=== PATIENT | female | born 1935 | race Two or more races ===

== ENCOUNTER 2018-08-12 14:15 | Outpatient (CLI) | payer MEDICARE, OTHER ==
[~2018-08-12 14:15] MED LIST: ASPIRIN EC81 MG ORAL; CALCIUM500 M3 PO; CHOLESTEROL MED PO; PROZAC10 MG ORAL; SIMVASTATIN40 MG ORAL; [UNRECOGNIZED DRUG - REMARK] IM
[2018-08-12 15:23] VITALS: BP 123/60
--- NOTE | 2018-08-12 16:22 | GI Progress Note ---
Assessment/Plan Problems: (1) H. pylori infection ICD Codes: A04.8 - Other specified bacterial intestinal infections SNOMED: 986676456 Status: stable Status Narrative Discussed with Dr. Peraza. Assessment/Plan s/p EGD / colonoscopy 2015, noted with H. Pylori infection never had treatment Breath Test today RTC pending results, will contact patient repeat colonoscopy 2020 The patient was seen and examined at bedside and all new and available data was reviewed in the patients chart. I agree with the above findings, impression and plan. (Patient seen earlier today. Signature stamp does not reflect patient encounter time.). - Max Peraza MD Subjective Gastrointestinal/Abdominal: Reports: no symptoms Objective Last 24 Hour Vital Signs Date Time Temp Pulse Resp B/P (MAP) Pulse Ox O2 Delivery O2 Flow Rate FiO2 08/12/18 15:23 97.7 83 123/60 96 Laboratory Tests Test 08/12/18 14:45 Helicobacter pylori Breath Test Pending General Appearance: WD/WN, no apparent distress, alert Cardiovascular: normal rate Respiratory/Chest: normal breath sounds, no respiratory distress Abdominal Exam: normal bowel sounds, non tender, soft Extremities: normal range of motion, non-tender Camille Jimenez SUPERVISOR [employer]INE Aug 12, 2018 16:22
== END 2018-08-12 14:45 | disposition home or self-care (01) ==
LOC: PAN 14:15
DX: A04.8 Other specified bacterial intestinal infections (principal)
CPT/HCPCS: 83013; G0463; 99212

== ENCOUNTER 2019-05-26 13:53 | Outpatient (CLI) | payer MEDICARE, OTHER ==
[2019-05-26] MEDS ORDERED: LOSARTAN POTASS50 MG ORAL (14:46)
--- NOTE | 2019-05-26 14:50 | GI Progress Note ---
Assessment/Plan Problems: (1) Hx of colonic polyps ICD Codes: Z86.010 - Personal history of colonic polyps SNOMED: 825413705 (2) Elevated cholesterol ICD Codes: E78.0 - Pure hypercholesterolemia SNOMED: 18944812 (3) Colonoscopy planned ICD Codes: [id number] - Reserved for [id number] codable problem concepts SNOMED: 601949661 (4) H. pylori infection ICD Codes: A04.8 - Other specified bacterial intestinal infections SNOMED: 247588661 Status: unchanged Status Narrative Discussed with Dr. Peraza. Assessment/Plan FHx of colon CA. Hx of H. Pylori s/p treatment EGD/colonoscopy to be scheduled 06/06/19. - CLD & (Nulytely/Suprep/Movi-Prep) prep instructions given and acknowledged by patient. - NPO @ [place] day prior procedure explained. - Hold ASA day prior procedure. Will follow with additional recs post procedure. labs to drawn day of procedure, anemia panel. The patient was seen and examined at bedside and all new and available data was reviewed in the patients chart. I agree with the above findings, impression and plan. (Patient seen earlier today. Signature stamp does not reflect patient encounter time.). - Max Peraza MD Subjective Subjective generalized weakness abdominal discomfort Objective General Appearance: WD/WN, no apparent distress, alert Cardiovascular: normal rate Respiratory/Chest: normal breath sounds, no respiratory distress Abdominal Exam: normal bowel sounds, non tender, soft Extremities: normal range of motion, non-tender Camille Jimenez CHILD CARE GROUP LEADER May 26, 2019 14:50
== END 2019-05-26 15:53 | disposition home or self-care (01) ==
LOC: PAN 13:53
DX: E78.00 Pure hypercholesterolemia, unspecified (principal); Z86.010 Personal history of colon polyps; A04.8 Other specified bacterial intestinal infections; R53.1 Weakness; R10.9 Unspecified abdominal pain
CPT/HCPCS: 99212

== ENCOUNTER 2019-06-06 07:30 | Day surgery (SDC) | payer MEDICARE, OTHER ==
[2019-06-06] VITALS (8 sets, daily range): BP systolic 99–122; BP diastolic 50–66
[~2019-06-06] VITALS: Ht 157.5 cm; Wt 71.7 kg
[~2019-06-06 07:30] MED LIST changes: +LOSARTAN POTASS50 MG ORAL
[2019-06-06] MEDS ORDERED: fentaNYL 100 mcg/2 mL IV ONE ×2 (07:31→09:00)
--- NOTE | 2019-06-06 08:38 | Anethesia Preoperative Eval ---
Anesthesia Pre-op PMH/ROS General Date of Evaluation: Jun 06, 2019 Time of Evaluation: 08:35 Anesthesiologist: Alex ASA Score: ASA 2 Mallampati Score Class I : Soft palate, uvula, fauces, pillars visible Class II: Soft palate, uvula, fauces visible Class III: Soft palate, base of uvula visible Class IV: Only hard plate visible Mallampati Classification: Class II Surgeon: Karmen Diagnosis: Abdominal pain Surgical Procedure: EGD Colonoscopy Anesthesia History: none Family History: no anesthesia problems Allergies: Coded Allergies: No Known Allergies (Unverified , 06/01/16) Medications: see eMAR Patient NPO?: Yes Past Medical History Cardiovascular: Reports: HTN; Denies: CAD, NH, valve dz, arrhythmia, other Pulmonary: Denies: asthma, COPD, FAUSTINO, other Gastrointestinal/Genitourinary: Reports: GERD; Denies: CRI, ESRD, other Neurologic/Psychiatric: Reports: depression/anxiety; Denies: dementia, CVA, TIA, other Endocrine: Reports: hypothyroidism; Denies: DM, steroids, other HEENT: Denies: cataract (L), cataract (R), glaucoma, CADDO (L), CADDO (R), other Hematology/Immune: Denies: anemia, DVT, bleeding disorder, other Musculoskeletal/Integumentary: Reports: OA; Denies: RA, DJD, DDD, edema, other PMH Narrative: as above PSxH Narrative: See H&P Anesthesia Pre-op Phys. Exam Physician Exam Last Vital Signs Date Time Temp Pulse Resp B/P (MAP) Pulse Ox O2 Delivery O2 Flow Rate FiO2 06/06/19 08:23 97.7 78 16 96 Room Air Constitutional: NAD Neurologic: CN 2-12 intact Cardiovascular: RRR, no M/R/G Respiratory: CTA Gastrointestinal: S/NT/ND Airway Exam Mallampati Score: Class II MO: limited Neck: stiff ROM: limited Teeth: missing Dentures: no upper, no lower Anesthesia Pre-op A/P Risk Assessment & Plan Assessment: ASA 2 Plan: MAC Status Change Before Surgery: No Amaury Johnson MD Jun 06, 2019 08:37
[2019-06-06] MEDS ORDERED: LEXAPRO10 MG ORAL (08:39)
--- NOTE | 2019-06-06 08:51 | Pre-Procedure Note/Attestation ---
Pre-Procedure Note/Attestation Complete Prior to Procedure Planned Procedure: not applicable Procedure Narrative: esophagogastroduodenoscopy and colonoscopy Indications for Procedure Pre-Operative Diagnosis: screening colon, GERD Attestation I attest that I discussed the nature of the procedure; its benefits; risks and complications; and alternatives (and the risks and benefits of such alternatives ), prior to the procedure, with the patient (or the patient's legal utility sales representative). I attest that, if there was a reasonable possibility of needing a blood transfusion, the patient (or the patient's legal utility sales representative) was given the [facility] standardized written summary, pursuant to the Alireza [place] Blood Safety Act ([place] Health and Safety Code # 1645, as amended). I attest that I re-evaluated the patient just prior to the surgery and that there has been no change in the patient's H&P, except as documented below: Max Peraza MD Jun 06, 2019 08:51
--- NOTE | 2019-06-06 08:51 | Short Stay Surgery H&P ---
History of Present Illness History of Present Illness Chief Complaint see recent office note HPI Jose L Contreras is a 83 year old female who was admitted on for Abdominal Pain, Gerd Patient History Allergies: Coded Allergies: No Known Allergies (Unverified , 06/01/16) Medication History Scheduled Aspirin Ec* (Aspirin Ec*), 81 MG ORAL DAILY, (Reported) Calcium Carbonate (Calcium), 500 MG PO DAILY, (Reported) Escitalopram Oxalate* (Lexapro*), 10 MG ORAL DAILY, (Reported) Losartan Potassium* (Losartan Potassium*), ORAL DAILY, (Reported) Simvastatin (Zocor), 40 MG ORAL DAILY, (Reported) [Injection (Bones)], Unknown Dose IM EVERY 6 MONTHS, (Reported) Physical Exam Vital Signs Last Vital Signs Date Time Temp Pulse Resp B/P (MAP) Pulse Ox O2 Delivery O2 Flow Rate FiO2 06/06/19 08:43 Room Air 06/06/19 08:23 97.7 78 16 96 Plan Attestation Are the patient's medical conditions optimized for surgery? Max Peraza MD Jun 06, 2019 08:51
[2019-06-06] MEDS ORDERED: Propofol 200mg/20ml IV ONE (09:00)
[2019-06-06] MEDS ORDERED: LR 1000ml ONE (09:00)
[2019-06-06] MEDS ORDERED: LR 1000ml 1,000 ML IVLG SCH (09:22)
--- NOTE | 2019-06-06 09:33 | Endoscopy Procedure Note ---
Endoscopy Procedure Note General Indication for Procedure: screning colon eval, GERD Procedures Performed: EGD, colonoscopy Operative Findings/Diagnosis: gastritis, hemorrhoids Specimen: yes Pt Tolerated Procedure Well: Yes Estimated Blood Loss: none Anesthesia Anesthesiologist: liyah Anesthesia: MAC Inserted Devices Implant(s) used?: No Quality Quality of Bowel Preparation: Good Did scope reach the cecum?: Yes Was there any complications?: No GI Core Measures 50 yrs or older w/o bx or poly: No 10yrs. F/U recommended: Yes 18 years or older w/prev. colo: No Max Peraza MD Jun 06, 2019 09:33
--- NOTE | 2019-06-06 09:38 | Immediate Post-Op Evaluation ---
Immediate Post-Op Evalulation Immediate Post-Op Evalulation Procedure: EGD Colonoscopy Date of Evaluation: Jun 06, 2019 Time of Evaluation: 09:37 IV Fluids: 500 Blood Products: none Estimated Blood Loss: none Urinary Output: none Blood Pressure Systolic: 128 Blood Pressure Diastolic: 76 Pulse Rate: 68 Respiratory Rate: 20 O2 Sat by Pulse Oximetry: 98 Temperature (Fahrenheit): 97.4 Pain Score (1-10): 1 Nausea: No Vomiting: No Complications none Patient Status: awake, patent, none Hydration Status: adequate Amaury Johnson MD Jun 06, 2019 09:38
--- NOTE | 2019-06-06 11:15 | Procedure Note ---
DATE OF PROCEDURE: 06/06/2019 SURGEON: Max Peraza M.D. PROCEDURE: Upper endoscopy with biopsy and colonoscopy with biopsy . ANESTHESIA: Per Dr. Johnson. INSTRUMENT: Olympus adult flexible upper endoscope and colonoscope. INDICATION: Screening colonoscopy and chronic GERD. REASON FOR PROCEDURE: The procedure, risks, benefits, and possible consequences, including hemorrhage, aspiration, perforation and infection, and alternative treatments, were explained to the patient/legal guardian by Dr. Max Peraza and the patient/legal guardian understood and accepted these risks. PROCEDURE IN DETAIL: After informed consent was obtained and the patient was adequately sedated, Olympus upper endoscope was advanced from mouth into the second portion of the duodenum and retroflexion was performed in the stomach. The patient had evidence of gastritis. Random biopsy from antrum and body was obtained to rule out H. pylori infection. Rest of upper endoscopic examination was grossly looked within normal limits. GE junction was found to be about 36 cm from the incisors. At this time, the upper endoscope was retrieved and the patient was turned over for colonoscopy First, rectal exam was performed which was positive for small internal hemorrhoids. Then, the scope was advanced from rectum into the cecum documented by appendiceal orifice, ileocecal valve, and right upper quadrant palpation. Quality of prep was very good. The patient had two polyps in the ascending colon, both less than a cm. One actually was another one was 6, both removed with the cold biopsy forceps technique. The rest of the examination grossly looked within normal limit. Retroflexion of rectum showed evidence of small nonbleeding internal hemorrhoids. SUMMARY OF FINDINGS: 1. Gastritis, status post biopsy. 2. Internal hemorrhoids. 3. Two colonic polyp removed, see above for details. RECOMMENDATIONS: Follow up pathology and treat accordingly. I want to thank, Dr. Vela for this kind referral. Max Peraza M.D. DR: Nga JOB#: [id number] CC: Max Vela M.D.; Fax#: [phone]
--- NOTE | 2019-06-06 13:04 | 48 Hour Post Anesthesia Eval ---
Post Anesthesia Evaluation Procedure: EGD Colonoscopy Date of Evaluation: Jun 06, 2019 Time of Evaluation: 13:03 Blood Pressure Systolic: 122 0: 56 Pulse Rate: 74 Respiratory Rate: 20 Temperature (Fahrenheit): 97.2 O2 Sat by Pulse Oximetry: 98 Airway: patent Nausea: No Vomiting: No Pain Intensity: 1 Hydration Status: adequate Cardiopulmonary Status: stable Mental Status/LOC: patient returned to baseline Follow-up Care/Observations: n/a Post-Anesthesia Complications: none Follow-up care needed: ready to discharge Amaury Johnson MD Jun 06, 2019 13:04
--- NOTE | 2019-06-08 13:02 | Cardiology Report ---
APPROVED REPORT EKG Measurement Heart [id number] Normal sinus rhythm Normal ECG
== END 2019-06-06 11:50 | disposition home or self-care (01) ==
LOC: GAS 07:30
DX: Z12.11 Encounter for screening for malignant neoplasm of colon (principal); K21.9 Gastro-esophageal reflux disease without esophagitis; K64.8 Other hemorrhoids; K63.5 Polyp of colon; I10 Essential (primary) hypertension; F32.9 Major depressive disorder, single episode, unspecified; F41.9 Anxiety disorder, unspecified; M19.90 Unspecified osteoarthritis, unspecified site; K29.50 Unspecified chronic gastritis without bleeding; B96.81 Helicobacter pylori [H. pylori] as the cause of diseases classified elsewhere; D12.2 Benign neoplasm of ascending colon
CPT/HCPCS: 43239; 45380; 93005; J2704; J3010; 94003; 94150

== ENCOUNTER 2019-07-01 09:53 | Outpatient (CLI) | payer MEDICARE, OTHER ==
[~2019-07-01 09:53] MED LIST changes: +LEXAPRO10 MG ORAL
[2019-07-01 10:06] VITALS: BP 107/86
--- NOTE | 2019-07-01 11:15 | General Progress Note ---
Assessment/Plan Problem List: (1) H. pylori infection ICD Codes: A04.8 - Other specified bacterial intestinal infections SNOMED: 253943774 (2) Elevated cholesterol ICD Codes: E78.0 - Pure hypercholesterolemia SNOMED: 72192477 (3) Hx of colonic polyps ICD Codes: Z86.010 - Personal history of colonic polyps SNOMED: 665618852 Assessment/Plan: SUMMARY OF FINDINGS: 1. Gastritis, status post biopsy. 2. Internal hemorrhoids. 3. Two colonic polyp removed, see above for details. EGD and colonoscopy reviewed treat for HP RTC 3 months Subjective ROS Limited/Unobtainable: Yes Allergies: Coded Allergies: No Known Allergies (Unverified , 06/01/16) Objective General Appearance: alert EENT: normal ENT inspection Neck: supple Cardiovascular: normal rate Respiratory/Chest: decreased breath sounds Abdomen: normal bowel sounds, non tender, soft Extremities: non-tender Max Peraza MD Jul 01, 2019 11:15
== END 2019-07-01 12:30 | disposition home or self-care (01) ==
LOC: PAN 09:53
DX: E78.00 Pure hypercholesterolemia, unspecified (principal); A04.8 Other specified bacterial intestinal infections; Z86.010 Personal history of colon polyps; K29.70 Gastritis, unspecified, without bleeding; K64.8 Other hemorrhoids

== ENCOUNTER 2019-09-30 08:37 | Outpatient (CLI) | payer MEDICARE, OTHER ==
--- NOTE | 2019-09-30 10:02 | General Progress Note ---
Assessment/Plan Assessment/Plan: Assessment/Plan Problem List: (1) H. pylori infection ICD Codes: A04.8 - Other specified bacterial intestinal infections SNOMED: 258600831 (2) Elevated cholesterol ICD Codes: E78.0 - Pure hypercholesterolemia SNOMED: 56517574 (3) Hx of colonic polyps ICD Codes: Z86.010 - Personal history of colonic polyps SNOMED: 453229609 Assessment/Plan: SUMMARY OF FINDINGS: 1. Gastritis, status post biopsy. 2. Internal hemorrhoids. 3. Two colonic polyp removed, see above for details. EGD and colonoscopy reviewed breath test today RTC 3 months Subjective ROS Limited/Unobtainable: Yes Allergies: Coded Allergies: No Known Allergies (Unverified , 06/01/16) Objective General Appearance: alert EENT: normal ENT inspection Neck: supple Cardiovascular: normal rate Respiratory/Chest: decreased breath sounds Abdomen: normal bowel sounds, non tender, soft Extremities: non-tender Max Peraza MD Sep 30, 2019 10:02
[2019-09-30 15:23] VITALS: BP 110/70
== END 2019-09-30 10:37 | disposition home or self-care (01) ==
LOC: PAN 08:37
DX: E78.00 Pure hypercholesterolemia, unspecified (principal); Z86.010 Personal history of colon polyps; A04.8 Other specified bacterial intestinal infections; K29.70 Gastritis, unspecified, without bleeding; K64.8 Other hemorrhoids; K63.5 Polyp of colon
CPT/HCPCS: 83013; G0463; 99212

== ENCOUNTER 2020-05-10 13:08 | Outpatient (CLI) | payer MEDICARE, OTHER ==
[2020-05-10 13:35] VITALS: BP 108/66
--- NOTE | 2020-05-10 14:13 | General Progress Note ---
Assessment/Plan Problem List: (1) Pancreatic cyst ICD Codes: K86.2 - Cyst of pancreas SNOMED: 07982279 (2) Elevated cholesterol ICD Codes: E78.0 - Pure hypercholesterolemia SNOMED: 81783841 (3) Hx of colonic polyps ICD Codes: Z86.010 - Personal history of colonic polyps SNOMED: 749740134 (4) H. pylori infection ICD Codes: A04.8 - Other specified bacterial intestinal infections SNOMED: 141321121 Assessment/Plan: last colonoscopy 2019 plan EUS for 3 mm panc cyst Subjective ROS Limited/Unobtainable: Yes Allergies: Coded Allergies: No Known Allergies (Unverified , 06/01/16) Objective Last 24 Hour Vital Signs Date Time Temp Pulse Resp B/P (MAP) Pulse Ox O2 Delivery O2 Flow Rate FiO2 05/10/20 13:35 97.1 76 16 108/66 (80) 97 General Appearance: alert EENT: normal ENT inspection Neck: supple Cardiovascular: normal rate Respiratory/Chest: decreased breath sounds Abdomen: normal bowel sounds, non tender, soft Extremities: non-tender Max Peraza MD May 10, 2020 14:13
== END 2020-05-10 15:08 | disposition home or self-care (01) ==
LOC: PAN 13:08
DX: K86.2 Cyst of pancreas (principal); E78.00 Pure hypercholesterolemia, unspecified; Z86.010 Personal history of colon polyps; A04.8 Other specified bacterial intestinal infections